=== PATIENT | male | born 1995 | race Caucasian/White ===

== ENCOUNTER 2017-03-28 11:13 | Emergency (ER) | payer OTHER ==
[~2017-03-28] VITALS: Ht 182.9 cm; Wt 77.3 kg
[2017-03-28 11:38] VITALS: Ht 182.9 cm; Wt 77.3 kg
--- NOTE | 2017-03-28 13:13 | DIAGNOSTIC IMAGING REPORT ---
LEFT KNEE 3 VIEWS HISTORY: Left knee pain. FALL ON L KNEE COMPARISON: None. FINDINGS: There is no fracture or dislocation. Mild prepatellar soft tissue swelling. No radiopaque foreign bodies. No knee effusion. IMPRESSION: No fractures. Electronically signed by: Zafar Michaud M.D. 03/28/2017 1:11 PM Dictated Date/Time: 03/28/2017 1:10 PM
--- NOTE | 2017-03-28 13:39 | EMERGENCY ROOM VISIT NOTE ---
ED Visit Note First contact with patient: 12:04 CHIEF COMPLAINT: Left knee injury 3 days ago HISTORY OF PRESENT ILLNESS: Patient is a 21-year-old white male who presents to the emergency department for evaluation of a left knee injury. He tripped over a curb and fell landing on his flexed left knee 3 days ago. He notes pain and swelling in the anterior aspect of the knee. It is worse with movement. He has a small abrasion noted laterally. He rates his discomfort a 6/10. He has not taken any medications, nor performed any interventions for his symptoms. REVIEW OF SYSTEMS: Review of systems as per HPI. All other systems reviewed were negative. At least 6 systems reviewed. PMH: Electronic medical records are reviewed and summarized as above/below. See Problem List. SOCIAL HISTORY: Patient lives at home with his parents. Employed. Positive tobacco and alcohol use, does not specify the amounts. PHYSICAL EXAM: Vital Signs: Reviewed Nurse's notes. MENTAL STATUS: Well- appearing 21-year-old white female who is awake and alert and in no acute distress. MUSCULOSKELETAL: Examination of the left knee notes some slight prepatellar soft tissue swelling. He has a superficial, scabbed over abrasion over the anterior lateral aspect of the left knee. There is no significant knee joint effusion palpable. He is tender over the patella, particularly inferiorly, no pain over the quadriceps tendon or the patellar ligament. Range of motion is essentially full, he has slight anterior discomfort with extremes of flexion. No gross ligamentous instability is appreciated. Left lower extremity is neurovascularly intact. EMERGENCY DEPARTMENT COURSE: X-rays of the left knee were obtained, soft tissue swelling was noted without evidence for acute fracture. Conservative care measures were discussed. Differential diagnosis includes patellar fracture, knee contusion, prepatellar bursitis, tendinitis, meniscal or ligamentous injury , among others. He was encouraged to resume normal activity as his symptoms allow. Medication reconciliation: I attest that I have personally reviewed the patient' s current medication list. Blood pressure screening : Patient was found to have normal blood pressure on screening and does not require follow-up. LEFT KNEE 3 VIEWS HISTORY: Left knee pain. FALL ON L KNEE COMPARISON: None. FINDINGS: There is no fracture or dislocation. Mild prepatellar soft tissue swelling. No radiopaque foreign bodies. No knee effusion. IMPRESSION: No fractures. Problem List Medical Problems: (1) Calcaneal fracture Status: Resolved (2) Cellulitis of left knee Status: Resolved (3) Gamekeeper's thumb, traumatic, right Status: Resolved (4) No significant medical problems Status: Chronic Surgical Problems: (1) No significant past surgical history Status: Chronic Current/Historical Medications No Active Prescriptions or Reported Meds Allergies Coded Allergies: No Known Allergies (Unverified , 03/28/17) Vital Signs Date Time Temp Pulse Resp B/P (MAP) Pulse Ox O2 Delivery O2 Flow Rate FiO2 03/28/17 14:12 36.9 76 18 134/74 98 03/28/17 11:38 36.9 83 18 149/73 98 Room Air Departure Information Impression Primary Impression: Contusion of left knee Prescriptions No Active Prescriptions or Reported Meds Referrals Nadeem Balderas M.D. (MEDICAL) (PCP) Patient Instructions My [facility] Additional Instructions Ibuprofen(Motrin, Advil) may be used for fever or pain. Use 600mg every six hours as needed. Take with food. Avoid using more than 2400mg in a 24 hour period. Do not use 2400mg per day for more than three consecutive days without physician direction. Prolonged inappropriate use can lead to stomach upset or ulcers. This medication can be taken if you need to drive, work, or perform activities which may be dangerous when taking narcotic pain medication. (AND/OR) Acetaminophen(Tylenol) may be used for fever or pain. Use 1000mg every six hours as needed. Avoid using more than 3000mg in a 24 hour period. This medication can be taken if you need to drive, work, or perform activities which may be dangerous when taking narcotic pain medication. Ice compresses for 20 minutes at a time four times daily for 2-3 days. Rest and elevate your injury. May resume normal activity as your symptoms allow. Continue current medications. Return to the ER immediately for any numbness, tingling, severe pain, extreme swelling in the extremity or as needed. Followup with your family doctor or orthopedic surgery if no improvement in 5-7 days.
[2017-03-28 14:12] VITALS: BP 134/74; PULSE 76; TEMP 36.9; O2SAT 98
== END 2017-03-28 14:13 | disposition home or self-care (01) ==
LOC: C.EDB 11:15 → C.EDD 14:13
DX: S80.02XA Contusion of left knee, initial encounter (principal); W10.1XXA Fall (on)(from) sidewalk curb, initial encounter; Z72.0 Tobacco use